=== PATIENT | male | born 1990 | race Caucasian/White ===

== ENCOUNTER 2020-10-24 19:14 | Emergency (ER) | payer BC, OTHER ==
[2020-10-24] MEDS ORDERED: HYDROCODON-ACE1 EAC4 PO (20:10)
== END 2020-10-24 20:20 | disposition home or self-care (01) ==
LOC: ER1 19:14
DX: S43.101A Unspecified dislocation of right acromioclavicular joint, initial encounter (principal); W19.XXXA Unspecified fall, initial encounter; Y93.67 Activity, basketball; Y92.009 Unspecified place in unspecified non-institutional (private) residence as the place of occurrence of the external cause
CPT/HCPCS: 73030; 99283

== ENCOUNTER 2020-11-14 12:52 | Emergency (ER) | payer BC, OTHER ==
[~2020-11-14 12:52] MED LIST: HYDROCODON-ACE1 EAC4 PO
[2020-11-14 13:29] LABS: HEMOGLOBIN 16.7 gm/dl (14.0-17.5); RED BLOOD COUNT 5.35 M/UL (4.20-5.50); WHITE BLOOD COUNT 8.4 K/UL (4.5-11.0)
[2020-11-14 13:48] LABS: BUN/CREATININE RATIO 17 (0-10)
[2020-11-14] MEDS ORDERED: VIMPAT100 MG PO (16:20)
[2020-11-14] MEDS ORDERED: HYDROCODON-ACE1 EAC4 PO (19:30)
== END 2020-11-14 20:07 | disposition home or self-care (01) ==
LOC: ER1 12:52
PROVIDERS: Emergency Medicine
DX: G40.909 Epilepsy, unspecified, not intractable, without status epilepticus (principal); S00.12XA Contusion of left eyelid and periocular area, initial encounter; M54.41 Lumbago with sciatica, right side; Z91.14 Patient's other noncompliance with medication regimen; W01.10XA Fall on same level from slipping, tripping and stumbling with subsequent striking against unspecified object, initial encounter
CPT/HCPCS: 70450; 70486; 72125; 72128; 72131; 73562; 80053; 83735; 85025; 90471; 90715; 93005; 96374; 96375; 99285; J1100; J1885; J2060; J3010; Q9967

== ENCOUNTER 2020-12-21 20:10 | Emergency (ER) | payer BC, OTHER ==
[~2020-12-21 20:10] MED LIST changes: +VIMPAT100 MG PO
[2020-12-21 20:51] LABS: HEMOGLOBIN 14.8 gm/dl (14.0-17.5); RED BLOOD COUNT 4.72 M/UL (4.20-5.50); WHITE BLOOD COUNT 7.7 K/UL (4.5-11.0)
[2020-12-21 21:01] LABS: BUN/CREATININE RATIO 19 (0-10)
[2020-12-21] MEDS ORDERED: CYCLOBENZAPRINE10 MG PO (23:02)
== END 2020-12-21 23:15 | disposition home or self-care (01) ==
LOC: ER1 20:10
PROVIDERS: Physician Assistant
DX: S16.1XXA Strain of muscle, fascia and tendon at neck level, initial encounter (principal); S00.93XA Contusion of unspecified part of head, initial encounter; Z79.899 Other long term (current) drug therapy; V49.50XA Passenger injured in collision with unspecified motor vehicles in traffic accident, initial encounter; Y92.410 Unspecified street and highway as the place of occurrence of the external cause
CPT/HCPCS: 70450; 72125; 72128; 72131; 73590; 80053; 83735; 85025; 93005; 99284; J2060